=== PATIENT | female | born 1980 | race Caucasian/White ===

== ENCOUNTER 2024-05-30 06:59 | Emergency (ER) | payer OTHER ==
[~2024-05-30] VITALS: Ht 165.1 cm; Wt 66.4 kg
[2024-05-30] MEDS ORDERED: MORPHINE Sulfate 2 MG/ML SYR IV ONE (07:25)
[2024-05-30] MEDS ORDERED: ceFAZolin sodium 1 GM VIAL IM ONE (07:25)
[2024-05-30] MEDS ORDERED: Tdap Vaccine 0.5 ML SYR (Adult Vaccine) IM ONE (07:25)
[2024-05-30 07:39] LABS: BASO % 0.3 % (0.0-1.0); EOS # 0.1 10*3/uL (0.0-0.4); EOS % 0.8 % (1.0-4.0); HEMATOCRIT 41.5 % (37.0-47.0); LYMPH # 2.4 10*3/uL (1.3-4.4); LYMPH % 20.8 % (27.0-41.0); MEAN CELL VOLUME 91.8 fl (81.0-99.0); MEAN CORPUSCULAR HGB 30.1 pg (27.0-31.0); MEAN CORPUSCULAR HGB CONC 32.8 g/dl (33.0-37.0); MEAN PLATELET VOLUME 10.1 fl (9.6-12.3); MONO # 0.6 10*3/uL (0.1-1.0); NEUT # 8.5 10*3/uL (2.3-7.9); NEUT % 72.6 % (47.0-73.0); PLATELET COUNT AUTOMATED 296 10*3/uL (130-400); RED BLOOD COUNT 4.52 10*6/uL (4.10-5.10); RED CELL DISTRI WIDTH 12.1 % (0-14.5); WHITE BLOOD COUNT 11.7 10*3/uL (4.8-10.8)
[2024-05-30 07:56] LABS: BUN 8 mg/dl (9-23); CHLORIDE 106 mmol/L (98-107); CPK 149 U/L (34-171); POTASSIUM 3.2 mmol/L (3.4-5.1)
[2024-05-30] MEDS ORDERED: SODIUM CHLORIDE 0.9% 1,000 ML IV ONE (08:05)
[2024-05-30] MEDS ORDERED: HYDROmorphONE Hydrochloride 0.5 MG/0.5 ML SYRINGE IV ONE (08:10)
== END 2024-05-30 08:49 | disposition short-term general hospital (02) ==
LOC: ED 06:59
PROVIDERS: Internal Medicine
DX: S41.111A Laceration without foreign body of right upper arm, initial encounter (principal); M62.82 Rhabdomyolysis; W54.0XXA Bitten by dog, initial encounter; Y93.89 Activity, other specified; Y92.009 Unspecified place in unspecified non-institutional (private) residence as the place of occurrence of the external cause; Y99.8 Other external cause status